=== PATIENT | male | born 1950 | race Caucasian/White ===

== ENCOUNTER → 2017-09-18 | Outpatient (CLI) | payer MEDICARE ==
--- NOTE | 2017-09-18 15:25 | US ---
EXAMINATION TYPE: US carotid duplex BILAT DATE OF EXAM: 09/18/2017 COMPARISON: NONE CLINICAL HISTORY: I65.29 Carotid Stenosis R06.02 Shortness of Breath. SOB EXAM MEASUREMENTS: RIGHT: Peak Systolic Velocity (PSV) cm/sec ----- Right CCA: 61.6 ----- Right ICA: 65.1 ----- Right ECA: 91.0 ICA/CCA ratio: 1.1 RIGHT: End Diastole cm/sec ----- Right CCA: 28.5 ----- Right ICA: 25.0 ----- Right ECA: 24.9 LEFT: Peak Systolic Velocity (PSV) cm/sec ----- Left CCA: 78.2 ----- Left ICA: 53.3 ----- Left ECA: 55.9 ICA/CCA ratio: 0.7 LEFT: End Diastole cm/sec ----- Left CCA: 25.7 ----- Left ICA: 20.2 ----- Left ECA: 13.1 VERTEBRALS (direction of flow): Right Vertebral: Antegrade Left Vertebral: Antegrade Rhythm: Arrhythmia No elevated velocities, no significant stenosis. IMPRESSION: 1. No significant flow-limiting stenosis bilateral carotid bifurcations. Criteria for Assigning % of Stenosis / Diameter reduction (Estimation based on the indirect measurements of the internal carotid artery velocities (ICA PSV). 1. Normal (no stenosis)=ICA PSV < 125 cm/s: ratio < 2.0: ICA EDV<40 cm/s. 2. Less than 50% stenosis=ICA PSV < 125 cm/s: ratio < 2.0: ICA EDV<40 cm/s. 3. 50 to 69% stenosis=ICA PSV of 125 to 230 cm/s: ration 2.0 ? 4.0: ICA EDV 40-100 cm/s. 4. Greater than 70% stenosis to near occlusion= ICA PSV > 230 cm/s: ratio > 4.0: ICA EDV > 100 cm/s. 5. Near occlusion= ICA PSV velocities may be low or undetectable: variable ratio and ICA EDV. 6. Total occlusion=unable to detect flow.
== END ==
LOC: CPPFTMAIN 12:56
PROVIDERS: ATTEND Thoracic Surgery (Cardiothoracic Vascular Surgery)
DX: J98.8 Other specified respiratory disorders (principal); I65.23 Occlusion and stenosis of bilateral carotid arteries
CPT/HCPCS: 93880; 94060; 94726; 94729